=== PATIENT | male | born 1985 | race Caucasian/White ===

== ENCOUNTER 2018-08-30 18:44 | Inpatient (IN) | payer SELFPAY ==
[~2018-08-30] VITALS: Ht 180.3 cm; Wt 82.1 kg
[2018-08-30 21:53] LABS: BASOPHILS # (AUTO) 0.1 (0.0-0.1); BASOPHILS % 0.4 % (0.0-1.0); EOSINOPHILS # (AUTO) 0.1 (0.0-0.4); EOSINOPHILS % 0.7 % (0.0-6.0); HEMATOCRIT 44.7 % (38.2-49.6); HEMOGLOBIN 15.1 g/dL (14.0-18.0); LYMPHOCYTES % 12.3 % (18.0-39.1); MEAN CORPUSCULAR HEMOGLOBIN 29.2 pg (28-32); MEAN CORPUSCULAR HGB CONC 33.8 g/dL (31-35); MEAN CORPUSCULAR VOLUME 86.3 fL (81-99); MONOCYTES # (AUTO) 1.1 (0.2-0.8); MONOCYTES % 6.8 % (4.4-11.3); NEUTROPHILS # (AUTO) 12.8 (2.1-6.9); NEUTROPHILS % 79.4 % (38.7-80.0); PLATELET COUNT 251 x10e3/uL (140-360); RED BLOOD COUNT 5.18 x10e6/uL (4.3-5.7); RED CELL DISTRIBUTION WIDTH 12.7 % (11.7-14.4)
[2018-08-30 22:22] LABS: ALANINE AMINOTRANSFERASE 93 IU/L (0-55); ALKALINE PHOSPHATASE 84 IU/L (40-150); ANION GAP 16.6 mmol/L (8-16); BLOOD UREA NITROGEN 22 mg/dL (7-26); BUN/CREATININE RATIO 21 (6-25); CALCIUM 8.9 mg/dL (8.4-10.2); CARBON DIOXIDE 21 mmol/L (22-29); CHLORIDE 99 mmol/L (98-107); CREATININE, SERUM 1.05 mg/dL (0.72-1.25); EST GLOMERULAR FILTRATION RATE > 60 ML/MIN (60-); GLUCOSE 99 mg/dL (74-118); MAGNESIUM 2.3 MG/DL (1.3-2.1); POTASSIUM 3.6 mmol/L (3.5-5.1); SODIUM 133 mmol/L (136-145)
--- NOTE | 2018-08-30 22:22 | Diagnostic Imaging Report ---
EXAMINATION: Head CT HISTORY: Head trauma, scalp contusion COMPARISON: None. TECHNIQUE: Multidetector axial images were obtained without contrast from the foramen magnum to the vertex . The images were reconstructed using brain and bone algorithms. Thin section brain images were reformatted into coronal and sagittal planes. Image quality: Motion/streaking artifact limits the evaluation of the skull base and posterior cranial fossa. Dose modulation, iterative reconstruction, and/or weight based adjustment of the mA/kV was utilized to reduce the radiation dose to as low as reasonably achievable. FINDINGS: Parenchyma: 1. No abnormal densities. 2. No mass or hemorrhage. No CT evidence of acute territorial vascular insult. Extra-axial spaces:No abnormal density. No extra-axial fluid collections Brain volume: Normal for age. Ventricles: No hydrocephalus or displacement. Arteries: No density suggestive of thrombus. Dural sinuses: No abnormal density. Extra-axial spaces: No abnormal density. Foramen magnum: No mass, Chiari malformation, or basilar invagination. Sella: No obvious mass. Paranasal/mastoid sinuses: Imaged portions unremarkable. Skull/Scalp: No lytic or blastic lesions. No fractures. IMPRESSION: No intracranial abnormalities, particularly no hemorrhage. Signed by: Dr. Mercedes Scherer M.D. on 08/30/2018 10:19 PM
--- NOTE | 2018-08-30 22:29 | Diagnostic Imaging Report ---
HAND 3+ VIEWS RIGHT HISTORY: Right hand pain, contusion, soreness. COMPARISON: None available. FINDINGS: Bones: No acute displaced fracture. No erosions. Plate and screw constructs in the fourth and fifth metacarpals without evidence of hardware fracture or loosening. Osseous alignment is within normal limits. Joints: The joint spaces are well-maintained. Soft tissues: The soft tissues appear unremarkable. IMPRESSION: No acute radiographic abnormality. Signed by: DR. Kyle Peralta MD on 08/30/2018 10:26 PM
[2018-08-31] VITALS (7 sets, daily range): BP systolic 106–152; BP diastolic 61–75
[2018-08-31 00:22] LABS: AMPHETAMINES SCREEN,URINE POSITIVE (NEGATIVE); BENZODIAZEPINES SCREEN,URINE NEGATIVE (NEGATIVE); PHENCYCLIDINE SCREEN,URINE NEGATIVE (NEGATIVE)
[2018-08-31] MEDS ORDERED: KETOROLAC TROMETHAMINE 30 MG/ML VIAL IV STA (00:35)
[2018-08-31] MEDS ORDERED: VANCOMYCIN 1GM/NS 250 ML 250 ML ONE (01:04)
[2018-08-31] MEDS ORDERED: AZTREONAM 1 GM/NS 50 ML 50 ML IV ONE (01:04)
[2018-08-31] MEDS: AZTREONAM 2GM/NS 100ML 100 ML IV SCH ×3 (01:14→16:15)
[2018-08-31] MEDS ORDERED: ONDANSETRON HCL INJ 2 MG/ML VIAL IV PRN (01:30)
--- OUTSIDE RECORDS SUMMARY | 2018-08-31 01:49 | XMS REPORT ---
Author Author [facility] Address Unknown Phone Unavailable Care Team Providers Care Track Coach Name Role Phone Evelio DIAZ Unavailable Unavailable Problems This patient has no known problems. Allergies, Adverse Reactions, Alerts This patient has no known allergies or adverse reactions. Medications This patient has no known medications. 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 COMPARISON: None available. FINDINGS: Bones: No acute displaced fracture. No erosions. Plate and screw constructs in the fourth and fifth metacarpals without evidence of hardware fracture or loosening. Osseous alignment is within normal limits. Joints: The joint spaces are well-maintained. Soft tissues: The soft tissues appear unremarkable. IMPRESSION: No acute radiographic abnormality. Signed by: DR. Kyle Graham MD on 08/30/2018 10:26 PM Dictated By: KYLE GRAHAM MD 25 Transcribed By: NIMISHA on 08/30/182225 COPY TO: JOAN DINH NP CT BRAIN WO 2018-08-30 22:16:00 [place] [address] Patient Name: GAVIN COLE MR #: [id number] : 1985 Age/Sex: 32/M Req #: [id number] Adm Physician: Ordered by: JOAN DINH NP Report #: [id number] Location: ER Room/Bed: Procedure: [id number] CT/CT BRAIN WO Exam Date: 08/30/18 Exam Time: 2134 REPORT STATUS: Signed EXAMINATION: Head CT HISTORY: Head trauma, scalp contusion COMPARISON: None. TECHNIQUE: Multidetector axial images were obtained without contrast from the foramen magnum to the vertex . The images were reconstructed using brain and bone algorithms. Thin section brain images were reformatted into coronal and sagittal planes. Image quality: Motion/streaking artifact limits the evaluation of the skull base and posterior cranial fossa. Dose modulation, iterative reconstruction, and/or weight based adjustment of the mA/kV was utilized to reduce the radiation dose to as low as reasonably achievable. FINDINGS: Parenchyma: 1. No abnormal densities. 2. No mass or hemorrhage. No CT evidence of acute territorial vascular insult. Extra-axial spaces:No abnormal density. No extra-axial fluid collections Brain volume: Normal for age. Ventricles: No hydrocephalus or displacement. Arteries: No density suggestive of thrombus. Dural sinuses: No abnormal density. Extra-axial spaces: No abnormal density. Foramen magnum: No mass, Chiari malformation, or basilar invagination. Sella: No obvious mass. Paranasal/mastoid sinuses: Imaged portions unremarkable. Skull/Scalp: No lytic or blastic lesions. No fractures. IMPRESSION: No intracranial abnormalities, particularly no hemorrhage. Signed by: Dr. Monroe Scherer M.D. on 08/30/2018 10:19 PM Dictated By: MONROE SCHERER MD 18 Transcribed By: NIMISHA on 08/30/182218 COPY TO: JOAN DINH NP
[2018-08-31] MEDS ORDERED: VANCOMYCIN 1GM/NS 250 ML 250 ML IV SCH (02:00)
--- NOTE | 2018-08-31 03:30 | NUR ---
PATIENT RECEIVED FROM EMERGENCY DEPARTMENT PER STRETCHER. HE'S DROWSY AND SLEEPY BUT EASY TO AROUSE. WOUND OBSERVED ON THE TOP OF THE RIGHT HAND WITH SCAB INTACT, NO DRAINAGE NOTED. THE RIGHT HAND AND FINGERS ARE SWOLLEN AND WARM TO TOUCH, ELEVATED ON PILLOW. PATIENT C/O PAIN WITH PAIN SCORE #3, BED ALARM ON, CALL LIGHT WITHIN EASY REACH.
[2018-08-31] MEDS: SODIUM CHLORIDE 0.9% 1000ML 1,000 ML IV SCH ×2 (05:10→22:45)
--- NOTE | 2018-08-31 07:14 | NUR ---
CHANGE OF SHIFT REPORT GIVEN TO THE ONCOMING NURSE, THE NURSE WAS TOLD TO PLEASE COMPLETE THE ADMISSION ASSESSMENT BECAUSE THE PATIENT HAS BEEN DROWSY AND SLEEPY SINCE HIS ARRIVAL TO THE FLOOR.
--- NOTE | 2018-08-31 10:10 | NUR ---
CASE MANAGEMENT INITIAL ASSESSMENT Water System Operator to bedside to discuss plan of care with patient/family. CM/SW role and care transitions discussed. Anticipated discharge plan discussed along with duration of care. CM/SW discussed patients right to make decisions in care. CM/SW work hours given. Patient lives: IN OWN HOME WITH COMMON LAW STATES CURRENTLY AT [facility] Admit/Transfer: VIA ED FROM 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 RESOURCES THAT PATIENT MAY BE ABLE TO FOLLOW UP UPON DISCHARGE. PT EDUCATED ON EACH RESOURCE AND UNDERSTANDING HOW TO FOLLOW UP TO SEE IF QUALIFIED FOR EACH RESOURCE. Education Needs: NONE IMM/BLANCA given and signed (if applicable): NA Goal for discharge: RETURN OT [facility] CM/SW left business card at the bedside with contact information. Name and number was also written on the patients whiteboard. Patient verbalized understanding of discussion. CM will follow-up with ongoing discharge and transition of care needs.
[2018-08-31] MEDS: NICOTINE 21 MG/EA PATCH TOP SCH (11:30)
[2018-08-31] MEDS ORDERED: CLINDAMYCIN 600MG / 50ML 50 ML IV SCH (12:00)
--- NOTE | 2018-08-31 12:08 | NUR ---
CM CALLED AL REGARDING PATIENT BARRIER TO TRANSFER BACK TO [facility]. AL INFORMED THAT PATIENT IS FROM FACILITY AND IF POSSIBLE AND SAFE FOR PATIENT TO BE TRANSITIONED TO PO ABX INSTEAD OF IV, PLEASE MAKE THE ADJUSTMENTS SO PATIENT CAN COMPLETE DETOX PROGRAM AT FACILITY. INEZ HORTA FOR DR. MAHONEY STATED HE WILL ASSESS THE PATIENT AND IF PATIENT CAN BE TRANSITIONED, HE WILL ADJUST MEDICATIONS.
--- NOTE | 2018-08-31 12:12 | NUR ---
CM NOTIFIED RN TO PLEASE MAKE MARKING ON PATIENT HAND AND FOREARM TO DETERMINE IF ABX IS TREATING CELLULITIS. RN AWARE THAT MARKINGS WILL DETERMINE IF THE INFECTION IS SPREADING OR IF IT IS RESULTING WITH TREATMENT.
[2018-08-31] MEDS: HYDROCODONE/APAP 10MG-325MG TAB PO PRN ×2 (12:55→21:17)
[2018-08-31] MEDS: LORAZEPAM INJ 2 MG/ML VIAL IV PRN ×2 (14:40→22:10)
[2018-08-31] MEDS: KETOROLAC TROMETHAMINE 30 MG/ML VIAL IV PRN ×2 (14:40→21:00)
--- NOTE | 2018-08-31 15:50 | Consultation ---
DATE OF CONSULTATION: August 31, 2018 INFECTIOUS DISEASE CONSULTATION REASON FOR CONSULTATION: Cellulitis of the hand. HISTORY OF PRESENT ILLNESS: The patient, who is a 32-year-old white male with history of drug abuse, who does shoot amphetamine, comes in with redness and swelling of his hand. The patient is telling me that he was trying to shoot drugs there. He said that he was shooting drugs, started to have redness and swelling in the right hand going up to the arm; so, he came to the emergency room, where he is being admitted. PAST MEDICAL HISTORY: IV drug abuser. PAST SURGICAL HISTORY: Denies. Had notable infection before. ALLERGIES: NKA. SOCIAL HISTORY: IV drug abuser, and he also smokes. REVIEW OF SYSTEMS: Otherwise at the present time negative. LABORATORY DATA: White count 16.08. Hemoglobin is 15. Sodium 133, potassium 3.6, creatinine 1.05. X-ray of the hand was done and showed there is soft-tissue swelling. PHYSICAL EXAMINATION: GENERAL: He is currently alert, oriented, does not seem to be in acute distress. VITALS: Stable. Currently afebrile. HEENT: He does not appear icteric. NECK: Supple. CHEST: Clear. HEART: S1/S2. No S3, no S4, no murmur. ABDOMEN: Soft. THE HAND: There is erythema, there is edema involving the hand. The erythema is going up. IMPRESSION: 1. Cellulitis of the hand . 1. Intravenous drug abuse. Agree with vancomycin 1 gram q.12. I will change it to 1.25 q.12 h. Will add meropenem 500 mg q.8 since I am concerned about gram-negative. PATIENT IS ALLERGIC TO PENICILLIN. Await the blood cultures. Keep the hand elevated. Will follow. Job#: [id number] EV
[2018-08-31] MEDS: MEROPENEM 500MG 500 MG in SODIUM CHLORIDE 0.9% 50ML 50 ML IV SCH (17:12)
[2018-08-31] MEDS ORDERED: LIDOCAINE HCL 2% LOCAL INJ 5 ML SDV VIAL INJ ONE (19:10)
[2018-08-31] MEDS ORDERED: SEVOFLURANE INHAL SOLN 250 ML PEN BTL ONE (19:10)
[2018-08-31] MEDS ORDERED: DEXAMETHASONE SOD PHOS INJ 4 MG/ML VIAL ONE (19:10)
[2018-08-31] MEDS ORDERED: ONDANSETRON HCL INJ 2 MG/ML VIAL ONE (19:10)
[2018-08-31] MEDS ORDERED: PROPOFOL IV EMULSION 10 MG/ML 20 ML VIAL ONE (19:10)
--- NOTE | 2018-08-31 20:17 | Diagnostic Imaging Report ---
CT scan of the RIGHT HAND, WITH contrast. TECHNIQUE: Standard departmental protocols were used. Post-contrast images were obtained after the intravenous injection of 100 cc of Isovue-370. Sagittal and coronal reformatted images were obtained. Dose modulation, iterative reconstruction, and/or weight based adjustment of the mA/kV was utilized to reduce the radiation dose to as low as reasonably achievable. DLP = 344.8 mGy-cm HISTORY: Cellulitis, hand infection COMPARISON: Right hand radiographs August 30, 2018 FINDINGS: Bones: No acute displaced fracture. Status post-ORIF of the fourth and fifth metacarpal bones via dorsal plate and screw constructs. No evidence of hardware loosening or failure. Joints: The joint spaces are well-maintained. No dislocations. Soft tissues: Prominent dorsal soft tissue swelling. No loculated or drainable fluid collection. IMPRESSION: 1. Prominent dorsal soft tissue swelling. 2. No soft tissue abscess. 3. No CT findings to suggest osteomyelitis. A preliminary report was provided by Dr. Dalton on August 31, 2018 at 2016 hours. Signed by: Dr. Vadim Craig D.O., M.M.M. on 09/01/2018 8:17 AM
--- NOTE | 2018-08-31 20:34 | Consultation ---
DATE OF CONSULTATION: August 31, 2018 CHIEF COMPLAINT: Right hand infection. HISTORY OF PRESENT ILLNESS: The patient is 32-year-old male who admitted shooting methamphetamines into the dorsum of his right hand about 2 days ago with noted increased swelling, pain, and redness. He denies fever or chills. PAST MEDICAL HISTORY: Negative except for history of IV drug abuse. PAST SURGICAL HISTORY: No previous surgery. ALLERGIES: NO DRUGS ALLERGY. SOCIAL HABITS: He smokes and uses methamphetamine. REVIEW OF SYSTEMS: No chest pain or shortness of breath. PHYSICAL EXAMINATION: VITAL SIGNS: Stable. He is afebrile. Mildly tachycardic, 106. GENERAL: He is awake, alert, in moderate discomfort. HEENT: Sclerae nonicteric. NECK: Supple. LUNGS: Clear. HEART: Regular rate and rhythm. ABDOMEN: Soft, nontender. EXTREMITIES: Right hand is erythematous and edematous on the dorsum overlying the second and third metacarpal. There is exquisite tenderness to palpation. There is evidence of ascending lymphangitis of the arm and forearm. There are mild limitations of flexion and extension of the fingers. LABORATORY DATA: White cell count 16. Creatinine is 1.0. Lactic acid is 18. ASSESSMENT: Right hand infection from injection of drugs with soft tissue infection. PLAN: IV antibiotic initiated. We will perform debridement of the dorsum of the right hand under anesthesia. Thank you. Job#: [id number]
[2018-08-31] MEDS: SENNOSIDES 8.6 MG TAB PO SCH (21:00)
[2018-08-31] MEDS: VANCOMYCIN 1GM/NS 250 ML 250 ML IV SCH (21:30)
[2018-08-31] MEDS ORDERED: IOPAMIDOL 370 MG/ML 200 ML INFUS..BTL INJ ONE (21:58)
--- NOTE | 2018-08-31 22:45 | NUR ---
Multiple snacks given throughout the evening, including 2x sandwiches, 5x puddings, 3x jellos, 5x esme cracker packets. IV site to left hand infusing IV fluids. Call light within reach. Will continue to monitor.
[2018-09-01] VITALS (8 sets, daily range): BP systolic 111–138; BP diastolic 57–77
[2018-09-01] MEDS: AZTREONAM 2GM/NS 100ML 100 ML IV SCH ×3 (01:28→16:02)
--- NOTE | 2018-09-01 05:00 | NUR ---
Pt agitated and angry about having blood drawn at this time per clinical administrative coordinator. Pt cursing and speaking in loud voice. Explained to pt the need for lab test as doctor ordered. Pt very upset but agrees to have blood drawn at this time.
[2018-09-01 05:20] LABS: BASOPHILS # (AUTO) 0.1 (0.0-0.1); BASOPHILS % 0.4 % (0.0-1.0); EOSINOPHILS # (AUTO) 0.2 (0.0-0.4); EOSINOPHILS % 1.3 % (0.0-6.0); HEMATOCRIT 38.3 % (38.2-49.6); HEMOGLOBIN 12.7 g/dL (14.0-18.0); LYMPHOCYTES # (AUTO) 1.9 (1.0-3.2); MEAN CORPUSCULAR HEMOGLOBIN 28.7 pg (28-32); MEAN CORPUSCULAR HGB CONC 33.2 g/dL (31-35); MEAN CORPUSCULAR VOLUME 86.7 fL (81-99); MONOCYTES # (AUTO) 1.1 (0.2-0.8); MONOCYTES % 6.8 % (4.4-11.3); NEUTROPHILS # (AUTO) 12.5 (2.1-6.9); PLATELET COUNT 206 x10e3/uL (140-360); RED BLOOD COUNT 4.42 x10e6/uL (4.3-5.7); RED CELL DISTRIBUTION WIDTH 12.6 % (11.7-14.4)
--- NOTE | 2018-09-01 05:20 | NUR ---
Pt requesting for something to "calm" him down and medication for pain to his right hand. Administered prn meds as ordered.
[2018-09-01] MEDS: KETOROLAC TROMETHAMINE 30 MG/ML VIAL IV PRN ×2 (05:25→19:20)
[2018-09-01] MEDS: LORAZEPAM INJ 2 MG/ML VIAL IV PRN ×3 (05:25→22:10)
[2018-09-01] MEDS: MEROPENEM 500MG 500 MG in SODIUM CHLORIDE 0.9% 50ML 50 ML IV SCH ×5 (05:31→17:18)
[2018-09-01 05:44] LABS: ANION GAP 11.9 mmol/L (8-16); BLOOD UREA NITROGEN 9 mg/dL (7-26); BUN/CREATININE RATIO 12 (6-25); CALCIUM 8.2 mg/dL (8.4-10.2); CARBON DIOXIDE 21 mmol/L (22-29); CHLORIDE 105 mmol/L (98-107); CREATININE, SERUM 0.75 mg/dL (0.72-1.25); EST GLOMERULAR FILTRATION RATE > 60 ML/MIN (60-); GLUCOSE 118 mg/dL (74-118); POTASSIUM 3.9 mmol/L (3.5-5.1); SODIUM 134 mmol/L (136-145)
[2018-09-01] MEDS: NICOTINE 21 MG/EA PATCH TOP SCH (08:20)
[2018-09-01] MEDS ORDERED: FENTANYL CITRATE/PF 100MCG/2 ML INJ ONE ×2 (10:51→18:42)
[2018-09-01] MEDS: VANCOMYCIN 1GM/NS 250 ML 250 ML IV SCH ×2 (11:02→21:40)
[2018-09-01] MEDS: HYDROCODONE/APAP 10MG-325MG TAB PO PRN ×2 (11:30→19:20)
--- NOTE | 2018-09-01 15:31 | NUR ---
MET W THE PT AT THE BEDSIDE. PT VERY SLEEPY. STATES HE DID NOT REMEMBER WHY HE ASKED FOR CM. DISCUSSED APPLYING FOR [facility]. ENCOURAGED PT TO REVIEW LITERATURE PROVIDED BY SW WHEN HE IS NOT SO DROWSY. VERBALIZED UNDERSTANDING. INFORMED PT HE CAN ALSO CALL [facility] [employer] [facility] TO INITIATE MEDICAID APPLICATION. WROTE ON WHITE BOARD. PT DENIES ANY OTHER NEEDS AT THIS TIME STATES HE HAD NOT BEEN INFORMED WHEN HE WILL DC. Addendum: 09/01/18 at 1534 by Aditi Zarate CM STATES HE WILL RETURN TO [facility] UPON DC.
[2018-09-01] MEDS ORDERED: MIDAZOLAM HCL 2 MG/2 ML VIAL ONE (18:42)
--- NOTE | 2018-09-01 19:36 | NUR ---
Pt resting comfortably in bed with eyes closed. Awakes easily when called. Right hand wrapped in dsg, dry and intact. Breathing even, unlabored. Skin warm, dry to touch. Pt showing facial grimacing while guarding his right hand asking for pain medication "if it's time". Will medicate accordingly. Call light within reach. Will continue to monitor.
[2018-09-01] MEDS: SENNOSIDES 8.6 MG TAB PO SCH (21:00)
--- NOTE | 2018-09-01 22:00 | NUR ---
Pt requesting for something to help him "sleep" as he hasn't been able to sleep much, and asks for Ativan. Pt has been seen sleeping multiple times when this nurse walked into pt's room. Pt hands this nurse $1.75 in change to get him a coke from [employer]. Medicated pt with ativan per emar and provided pt with sandwich, pudding, Jello, and coke.
[2018-09-01] MEDS: SODIUM CHLORIDE 0.9% 1000ML 1,000 ML IV SCH (22:30)
[2018-09-02] VITALS (8 sets, daily range): BP systolic 102–134; BP diastolic 58–86
[2018-09-02] MEDS: MEROPENEM 500MG 500 MG in SODIUM CHLORIDE 0.9% 50ML 50 ML IV SCH ×2 (00:38→06:15)
[2018-09-02] MEDS: AZTREONAM 2GM/NS 100ML 100 ML IV SCH ×2 (01:41→09:00)
--- NOTE | 2018-09-02 03:50 | NUR ---
Pt verbalizes pain to right hand 9/10. Offered pain medication. Pt requests pain medication and snacks.
[2018-09-02] MEDS: HYDROCODONE/APAP 10MG-325MG TAB PO PRN ×3 (03:54→20:20)
[2018-09-02] MEDS: KETOROLAC TROMETHAMINE 30 MG/ML VIAL IV PRN ×3 (03:54→12:45)
--- NOTE | 2018-09-02 03:58 | NUR ---
Provided pain medication and snacks (jello, pudding, apple sauce) per pt's requests.
--- NOTE | 2018-09-02 04:10 | NUR ---
Pt c/o indigestion, requests for tums or any antacids. Informed him that this nurse will need to call a doctor to get him some tums. Pt requesting for some milk instead at this time. Provided 2 cartons of milk per pt's request.
--- NOTE | 2018-09-02 07:20 | NUR ---
walking rounds with the night nurse, patient aware of change. Patient in no distress, call berry within reach.
[2018-09-02] MEDS: NICOTINE 21 MG/EA PATCH TOP SCH (12:20)
[2018-09-02] MEDS ORDERED: ONDANSETRON HCL 4 MG ORAL DISINTEGRATING TAB PO PRN (12:45)
[2018-09-02] MEDS: VANCOMYCIN 1GM/NS 250 ML 250 ML IV SCH ×2 (14:08→20:00)
[2018-09-02] MEDS: MELOXICAM 7.5 MG TAB PO SCH ×2 (14:08→16:56)
[2018-09-02] MEDS: LORAZEPAM 0.5 MG TAB PO PRN (17:13)
--- NOTE | 2018-09-02 19:15 | NUR ---
Report received and walking rounds complete. Pt A&O and in no apparent distress and all safety measures ensured. Pt encouraged to use call berry for assistance.
[2018-09-02] MEDS: SENNOSIDES 8.6 MG TAB PO SCH (20:21)
--- NOTE | 2018-09-02 20:23 | NUR ---
Started pt IVPB for Vancomycin. Pt c/o IV site hurting after starting med. Lower the rate and restarted med but pt still c/o pain at site and started to jerk his hand at the pain and yell out "shit" every time he feels the medication enter his IV. The pt proceeded to call me inconsiderate and tell me that I did not lower the rate because it still hurts. I explained to pt that Vancomycin hurts and his IV is a spot that typical hurts. He then stated, " Let's get this shit over with then but I'm telling you it hurts and it shouldn't." Pt proceed to cuss and yell about how it hurts and that I needed to stop the med. Stopped the med and assessed the site. Advised pt that IV needed to be removed since he is complaining of pain and there is some redness at site. Pt stated, "No, cristiana I don't have any fucking veins and you're not going to keeping fucking poking me!" I explained to him that we need to take the IV out and he continued to refuse and state, "I am not going to be fucking poked. I have no veins and I should know because I poke myself!" I advised pt again that IV needs to come out but he continued to cuss and stated to "leave it alone". Had another nurse VIKY Sanchez come in to assess pt site and explain to pt that IV needs to be removed and he needs a new one. I also contacted the charge nurse to inform her of the situation and the pt's behavior. Both charge nurse VIKY Kimbrough and VIKY Sanchez spoke to the pt and then pt stated, "Fine, the IV can be removed because it hurts but give me awhile before you guys start poking me again." IV removed by VIKY Sanchez. IV to be replaced by ER or ICU staff member.
--- NOTE | 2018-09-02 23:15 | NUR ---
Kenroy from ER came to restart pt IV. Pt blatantly refused to get IV. Pt stated to "come back tomorrow". Charge nurse notified of pt refusing to get IV.
[2018-09-03 00:38] VITALS: BP 128/69
[2018-09-03 00:40] VITALS: BP 128/69
[2018-09-03 06:00] VITALS: BP 112/69
--- NOTE | 2018-09-03 06:54 | NUR ---
Report given to oncoming nurse
--- NOTE | 2018-09-03 07:41 | NUR ---
patient received very agitated, using fowl language at nurses, verbalizing his destain at the hospital and staff. explained that IV needs to be started in order to continue treatment. he sais we get one stick. explained that withut IV there is no further option for treatment. will attempt one stick and proceed from there.
[2018-09-03 08:20] VITALS: BP 130/83
[2018-09-03] MEDS: HYDROCODONE/APAP 10MG-325MG TAB PO PRN ×2 (08:40→14:01)
[2018-09-03] MEDS: MELOXICAM 7.5 MG TAB PO SCH (08:41)
[2018-09-03] MEDS: VANCOMYCIN 1GM/NS 250 ML 250 ML IV SCH (08:57)
[2018-09-03] MEDS: NICOTINE 21 MG/EA PATCH TOP SCH (08:57)
[2018-09-03] MEDS: LORAZEPAM 0.5 MG TAB PO PRN (08:57)
[2018-09-03 09:30] VITALS: BP 130/83
[2018-09-03 11:30] VITALS: BP 134/77
[2018-09-03] MEDS ORDERED: IBUPROFEN400 MG PO (15:02)
[2018-09-03] MEDS ORDERED: BACTRIM DS TAB1 EACH PO (15:02)
[2018-09-03] MEDS ORDERED: DOXYCYCLINE HY100 MG PO (15:03)
[2018-09-03] MEDS ORDERED: TYLENOL WITH C1 EACH PO (15:04)
--- NOTE | 2018-09-03 23:17 | Discharge Summary ---
CONSULTANTS 1. Dr. Tobias Mayberry. 2. Dr. Quinten Squires. FINAL DIAGNOSES 1. Right hand infection secondary to intravenous drug abuse associated with Staphylococcus and Streptococcus infection. 2. Right hand pain, much improved. 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 He apparently could not see a pain management due to financial constraint. Patient was shooting up methamphetamine through his right hand for pain control. The patient apparently missed the vein and causing significant redness and infection. CT scan showed no drainable abscess, but the patient was having some swelling. Therefore, Dr. Tobias Mayberry came in and irrigated the right hand with incision and drainage. The patient's right hand is much better now. He has full range of motion. There is no vascular compromise. There is no neurological compromise. The patient will be discharged to home with Bactrim and doxycycline for 10 days. He will also get Tylenol No. 3 and ibuprofen for pain. The patient is otherwise stable. DISPOSITION: Discharged to home today. FOLLOWUP CARE: Follow up with family doctor in approximately 1 week and then he may follow up with Dr. Tobias Mayberry in approximately 1 week as well. Patient discharged home today. Job#: [id number] DERICK
== END 2018-09-03 15:20 | disposition home or self-care (01) | DRG 580 ==
LOC: ER 18:44 → ERHOLD 08-31 01:46 → IMCU 08-31 05:13 → OBSVTOIN 09-02 12:49
PROVIDERS: ADMIT Internal Medicine; ATTEND Internal Medicine
PROC: 0JBJ0ZZ Excision of Right Hand Subcutaneous Tissue and Fascia, Open Approach (ICD-10-PCS; principal; 2018-09-01 08:30)
DX: L03.113 Cellulitis of right upper limb (principal); F11.20 Opioid dependence, uncomplicated; Y93.89 Activity, other specified; Y99.8 Other external cause status; B95.8 Unspecified staphylococcus as the cause of diseases classified elsewhere; B95.5 Unspecified streptococcus as the cause of diseases classified elsewhere; M54.5 Low back pain; G89.29 Other chronic pain; T14.90XA Injury, unspecified, initial encounter; F41.9 Anxiety disorder, unspecified; Z72.0 Tobacco use; R11.0 Nausea; Z53.29 Procedure and treatment not carried out because of patient's decision for other reasons
CPT/HCPCS: 36415; 70450; 80048; 80053; 80202; 80307; 82948; 83605; 83735; 85025; 87040; 87071; 87075; 87186; 87205; 96361; 99284; G0378; J1100; J1885; J2001; J2060; J2185; J2250; J2405; J3370; J7030; Q9967